=== PATIENT | female | born 1970 | race Asian ===

== ENCOUNTER → 2019-04-28 | Outpatient (CLI) | payer OTHER | LOC: M.MRI 07:30 | DX: S43.431A Superior glenoid labrum lesion of right shoulder, initial encounter (principal); M67.411 Ganglion, right shoulder; X58.XXXA Exposure to other specified factors, initial encounter; Y93.89 Activity, other specified; Y92.89 Other specified places as the place of occurrence of the external cause; Y99.8 Other external cause status ==